=== PATIENT | female | born 1955 | race American Indian/Alaskan Native ===

== ENCOUNTER 2016-11-22 09:48 | Emergency (ER) | payer MEDICARE ==
[2016-11-22 11:24] LABS: INR 0.98 (0.87-1.13); Partial Thromboplastin Time 26.1 Sec. (24.2-36.6)
[2016-11-22 11:25] LABS: BUN/Creatinine Ratio 18.57; Blood Urea Nitrogen 26 mg/dL (7-17); Carbon Dioxide 25 mmol/L (22-30); Glucose 116 mg/dL (65-100); Hematocrit 25.5 % (30.3-42.9); Hemoglobin 7.3 gm/dl (10.1-14.3); Mean Corpuscular HGB Conc 29 % (30-34); Platelet Count 432 K/mm3 (140-440); Red Blood Count 3.97 M/mm3 (3.65-5.03); Red Cell Distribution Width 19.9 % (13.2-15.2)
[2016-11-22 11:26] LABS: Alanine Aminotransferase 12 units/L (7-56); Albumin 3.7 g/dL (3.9-5); Albumin/Globulin Ratio 1.1 %; Alkaline Phosphatase 96 units/L (35-129); Anion Gap 16 mmol/L; Bilirubin,Total < 0.20 mg/dL (0.1-1.2); Chloride 103.4 mmol/L (98-107); Mean Corpuscular Hemoglobin 18 pg (28-32); Mean Corpuscular Volume 64 fl (79-97); Potassium 4.1 mmol/L (3.6-5.0); Sodium 140 mmol/L (137-145); Total Protein 7.2 g/dL (6.3-8.2)
[2016-11-22 12:09] LABS: Anisocytosis 1+; Blastocytes % (Manual) 0 %; Elliptocytes Rare; Hypochromasia 2+; Microcytosis 1+; Ovalocytes Rare; Stomatocytes Rare
[2016-11-22 12:10] LABS: Poikilocytosis 1+; Schistocytes Rare
[2016-11-22 12:11] LABS: Diff Status Complete; Platelet Estimate Consistent w Auto; Target Cells Rare; Tear Drop Cells Rare
--- NOTE | 2016-11-22 15:41 | Emergency Department Report ---
ED Recheck HPI - General Chief Complaint: Recheck/Abnormal Lab/Rx Stated Complaint: BLOOD TRANSFUSION/SENT BY DR ALL Time Seen by Provider: 11/22/16 15:24 Source: patient Mode of arrival: Ambulatory Limitations: No Limitations - History of Present Illness Initial Comments: 60-year-old female past medical history CK D, anemia, diabetes, hypertension sent by primary care doctor for check of H&H. Patient states that she was called by her PMD and advised to come to the ED to have her CBC checked again. Patient states that for 3 weeks she has experienced some occasional shortness of breath with exertion and general fatigue. Patient denies any chest pain denies any shortness of breath at rest denies any palpitations denies any bleeding from the vaginal or anal orifice denies any bright red blood per toilet paper or in the bowl. He denies any hematuria. Denies any active bleeding to her knowledge. States she had blood work drawn approximately one month ago at PMDs office and was informed this week that her blood count was low. Patient is not in any respiratory distress at this time during interview. MD Complaint: abnormal lab Onset/Timin -: week(s) Returns Today for: CBOAL - Related Data Home Medications Medication Instructions Recorded Confirmed Last Taken Aspirin [Aspirin TAB] 325 mg PO QDAY 10/23/14 10/23/14 1 Day Ago Clopidogrel [Plavix] 75 mg PO QDAY 10/23/14 10/23/14 1 Day Ago Enalapril Maleate [Vasotec] 20 mg PO BID 10/23/14 10/23/14 1 Day Ago Metoprolol Xl [Toprol Xl] 25 mg PO QDAY 10/23/14 10/23/14 1 Day Ago Simvastatin 20 mg PO QHS 10/23/14 10/23/14 1 Day Ago amLODIPine [Norvasc] 10 mg PO DAILY 10/23/14 10/23/14 1 Day Ago Previous Rx's Medication Instructions Recorded Last Taken Type Insulin Glargine [Lantus] 5 unit SUB-Q QHS #1 vial 10/26/14 Unknown Rx Insulin NPH/Regular [Novolin 70/30] 20 unit SQ BIDDIAB #1 vial 10/26/14 Unknown Rx Syring W-Ndl,Disp,Insul,0.5 ml 1 each MC BID #1 box 10/26/14 Unknown Rx [Advocate Syringes] Ferrous Sulfate [Feosol 325 MG tab] 325 mg PO QDAY #30 tablet 11/22/16 Unknown Rx Allergies Allergy/AdvReac Type Severity Reaction Status Date / Time No Known Allergies Allergy Verified 11/22/16 10:28 ED Review of Systems ROS: Stated complaint: BLOOD TRANSFUSION/SENT BY DR LAL Other details as noted in HPI Constitutional: denies: chills, fever Eyes: denies: eye pain, eye discharge, vision change ENT: denies: ear pain, throat pain Respiratory: denies: cough, shortness of breath, wheezing Cardiovascular: denies: chest pain, palpitations Endocrine: no symptoms reported Gastrointestinal: denies: abdominal pain, nausea, diarrhea Genitourinary: denies: urgency, dysuria, discharge Musculoskeletal: denies: back pain, joint swelling, arthralgia Skin: denies: rash, lesions Neurological: denies: headache, weakness, paresthesias Psychiatric: denies: anxiety, depression Hematological/Lymphatic: denies: easy bleeding, easy bruising ED Past Medical Hx - Past Medical History Hx Hypertension: Yes Hx Heart Attack/AMI: Yes Hx Congestive Heart Failure: No Hx Diabetes: Yes (Pt has self administered Insulin pump.) Hx Asthma: No Hx COPD: No Hx HIV: No Additional medical history: High cholesterol - Surgical History Hx Coronary Stent: Yes (2009 or 2010) Additional Surgical History: Hysterectomy - Social History Smoking Status: Former Smoker Substance Use Type: None - Medications Home Medications: Home Medications Medication Instructions Recorded Confirmed Last Taken Type Aspirin [Aspirin TAB] 325 mg PO QDAY 10/23/14 10/23/14 1 Day Ago History Clopidogrel [Plavix] 75 mg PO QDAY 10/23/14 10/23/14 1 Day Ago History Enalapril Maleate [Vasotec] 20 mg PO BID 10/23/14 10/23/14 1 Day Ago History Metoprolol Xl [Toprol Xl] 25 mg PO QDAY 10/23/14 10/23/14 1 Day Ago History Simvastatin 20 mg PO QHS 10/23/14 10/23/14 1 Day Ago History amLODIPine [Norvasc] 10 mg PO DAILY 10/23/14 10/23/14 1 Day Ago History Insulin Glargine [Lantus] 5 unit SUB-Q QHS #1 vial 10/26/14 Unknown Rx Insulin NPH/Regular [Novolin 70/30] 20 unit SQ BIDDIAB #1 vial 10/26/14 Unknown Rx Syring W-Ndl,Disp,Insul,0.5 ml 1 each MC BID #1 box 10/26/14 Unknown Rx [Advocate Syringes] Ferrous Sulfate [Feosol 325 MG tab] 325 mg PO QDAY #30 tablet 11/22/16 Unknown Rx ED Physical Exam - General Limitations: No Limitations General appearance: alert, in no apparent distress - Head Head exam: Present: atraumatic, normocephalic - Eye Eye exam: Present: normal appearance, PERRL, EOMI - ENT ENT exam: Present: mucous membranes moist - Neck Neck exam: Present: normal inspection, full ROM - Respiratory Respiratory exam: Present: normal lung sounds bilaterally. Absent: respiratory distress - Cardiovascular Cardiovascular Exam: Present: regular rate, normal rhythm. Absent: systolic murmur, diastolic murmur, rubs, gallop - GI/Abdominal GI/Abdominal exam: Present: soft, normal bowel sounds - Rectal Rectal exam: Present: normal inspection, heme (-) stool (no blood on digital rectal exam on guaiac card or on gross digital exam.) - Extremities Exam Extremities exam: Present: normal inspection, full ROM - Back Exam Back exam: Present: normal inspection - Neurological Exam Neurological exam: Present: alert, oriented X3, CN II-XII intact, normal gait - Psychiatric Psychiatric exam: Present: normal affect, normal mood - Skin Skin exam: Present: warm, dry, intact, normal color. Absent: rash ED Course Vital Signs 11/22/16 11/22/16 11/22/16 10:21 16:02 16:30 Temperature 98.4 F Pulse Rate 66 73 Respiratory 17 21 Rate Blood Pressure 144/59 162/60 O2 Sat by Pulse 100 100 98 Oximetry 11/22/16 11/22/16 16:38 17:00 Temperature Pulse Rate Respiratory 17 Rate Blood Pressure 162/60 O2 Sat by Pulse 100 99 Oximetry ED Recheck MDM - Medical Decision Making a/p: anemia, need for CBC check 1- case discussed with Dr. King before discharge 2- patient's hemoglobin and hematocrit is 7.3/25 with no active hemorrhage and minimal symptoms no indication for transfusion at this time. Stool guaiac negative. EKG unremarkable, troponin negative chest x-ray unremarkable 3-I informed patient of her creatinine of 1.4 she states that she was advised of this and she is aware she has chronic kidney disease. I advised her to remain well-hydrated 4-I contacted the offices of Dr. Ravin Lal and discussed case with nurse practitioner Nacho. As per COMPANY DOCTOR Nacho patient's hemoglobin and hematocrit was 7.221 one month ago and creatinine was 1.3. Today's findings are consistent with previous lab work. As per nurse practitioner Nacho patient can follow up in clinic on Friday. Patient to do so to have her BMP as well as CBC rechecked. I empirically started the patient on ferrous sulfate supplementation Critical care attestation.: If time is entered above; I have spent that time in minutes in the direct care of this critically ill patient, excluding procedure time. ED Disposition Clinical Impression: Low hemoglobin Anemia Qualifiers: Anemia type: unspecified type Qualified Code(s): D64.9 - Anemia, unspecified Disposition: TO HOME OR SELFCARE Is pt being admited?: No Does the pt Need Aspirin: No Condition: Stable Instructions: Chronic Kidney Disease (ED), Iron Rich Diet (ED), Iron Deficiency Anemia (ED), Anemia (ED) Additional Instructions: Patient given test results and advised to follow up with primary care doctor as soon as possible, as per primary care office patient can follow up on Friday Prescriptions: Ferrous Sulfate [Feosol 325 MG tab] 325 mg PO QDAY #30 tablet Referrals: PRIMARY CAREMD [Primary Care Provider] - 3-5 Days RAVIN LAL MD [Staff Physician] - 3-5 Days Time of Disposition: 17:08
--- NOTE | 2016-11-22 15:47 | XRay Report ---
Chest 2 views: History: Weakness. Findings: Borderline cardiomegaly. No consolidation, pneumothorax or pleural effusion. Impression: No acute cardiopulmonary findings.
[2016-11-22 17:34] VITALS: BP 162/60
== END 2016-11-22 17:29 | disposition home or self-care (01) ==
LOC: ED 09:48
DX: D64.9 Anemia, unspecified (principal); I10 Essential (primary) hypertension; I25.2 Old myocardial infarction; E11.9 Type 2 diabetes mellitus without complications; E78.00 Pure hypercholesterolemia, unspecified; Z87.891 Personal history of nicotine dependence; Z79.82 Long term (current) use of aspirin; Z79.4 Long term (current) use of insulin
CPT/HCPCS: 36415; 71020; 80053; 82270; 82962; 84484; 85007; 85025; 85610; 85730; 86850; 86900; 86901; 93005; 93010; 99284

== ENCOUNTER 2016-12-18 07:36 | Outpatient (CLI) | payer MEDICARE ==
--- NOTE | 2016-12-18 09:06 | Mammography Report ---
BILATERAL MAMMOGRAM: FINDINGS: The breast tissue is heterogeneously dense, which could obscure detection of small masses (approximately 50%-75% glandular). No suspicious mass, distortion, suspicious calcification, or skin change is seen. No interval change compared to prior study in December 2015. CAD was utilized. IMPRESSION: Negative mammogram. There is no mammographic evidence of malignancy. RECOMMENDATION: Follow-up per ACS guidelines. BI-RADS CATEGORY: 1 = Negative ACR BI-RADS MAMMOGRAPHIC CODES: 0 = Needs additional imaging evaluation; 1 = Negative; 2 = Benign; 3 = Probably benign; 4 = Suspicious; 5 = Malignant; 6 = Known biopsy-proven malignancy COMMENT: 1. Dense breast tissue, i.e., adenosis, fibrocystic changes, etc., may obscure an underlying neoplasm. 2. Approximately 10% of cancers are not detected with mammography. 3. A negative mammography report should not delay biopsy if a clinically suspicious mass is present. COMMENT: Patient follow-up letters are generated in [employer].
== END 2016-12-18 07:37 | disposition home or self-care (01) ==
LOC: MAMMO 07:36
PROVIDERS: ATTEND Obstetrics & Gynecology Gynecology
DX: Z12.31 Encounter for screening mammogram for malignant neoplasm of breast (principal); I11.0 Hypertensive heart disease with heart failure; I50.9 Heart failure, unspecified; E13.10 Other specified diabetes mellitus with ketoacidosis without coma; E78.00 Pure hypercholesterolemia, unspecified; Z87.891 Personal history of nicotine dependence
CPT/HCPCS: 77067; G0202

== ENCOUNTER 2017-05-22 12:35 | Emergency (ER) | payer MEDICARE ==
[2017-05-22] MEDS ORDERED: ZOFRAN ONE ×2 (13:05)
[2017-05-22] MEDS ORDERED: ZOFRAN IV ONE (13:12)
[2017-05-22 13:34] LABS: Bilirubin,Urine NEG (Negative); Blood,Urine NEG (Negative); Color,Urine Straw (Yellow); Mucus,Urine FEW /HPF; Nitrite,Urine NEG (Negative); Urobilinogen,Urine < 2.0 mg/dL (<2.0); WBC,Urine < 1.0 /HPF (0.0-6.0)
[2017-05-22] MEDS ORDERED: NACL 0.9% 1000 ML 1,000 ML IV ONE ×3 (13:45→15:27)
[2017-05-22 14:39] LABS: Calcium 9.5 mg/dL (8.4-10.2)
[2017-05-22 14:41] LABS: Hemoglobin 12.8 gm/dl (10.1-14.3); Red Blood Count 4.72 M/mm3 (3.65-5.03)
[2017-05-22 14:42] LABS: Hematocrit 42.4 % (30.3-42.9); Mean Corpuscular HGB Conc 30 % (30-34); Mean Corpuscular Hemoglobin 27 pg (28-32); Mean Corpuscular Volume 90 fl (79-97); Mean Platelet Volume 10.6 fl (6-12); Platelet Count 363 K/mm3 (140-440); Red Cell Distribution Width 19.1 % (13.2-15.2)
--- NOTE | 2017-05-22 15:04 | Emergency Department Report ---
- General Chief complaint: Hyperglycemia Stated complaint: HYPERGLYCEMIA/HYPERTENSION Time Seen by Provider: 05/22/17 13:23 Source: patient Mode of arrival: Ambulatory Limitations: No Limitations - History of Present Illness Initial comments: Patient is a 61-year-old female who has a past medical history of insulin-dependent diabetes with insulin pump who is presenting with hyperglycemia. Patient this morning very early started having some nausea with 3 episodes of vomiting. Patient saw her primary physician who checked her sugar and it read high. Patient was sent in for evaluation. Patient states that her symptoms appears to be working normally she has had no evidence of any infections lately there is no dysuria, cough cold congestion and sore throat and fever. Patient states that beyond the nausea vomiting there is no abdominal pain. MD Complaint: generalized weakness - Related Data Home Medications Medication Instructions Recorded Confirmed Last Taken Aspirin [Aspirin TAB] 325 mg PO QDAY 10/23/14 10/23/14 1 Day Ago ~10/22/14 Clopidogrel [Plavix] 75 mg PO QDAY 10/23/14 10/23/14 1 Day Ago ~10/22/14 Enalapril Maleate [Vasotec] 20 mg PO BID 10/23/14 10/23/14 1 Day Ago ~10/22/14 Metoprolol Xl [Toprol Xl] 25 mg PO QDAY 10/23/14 10/23/14 1 Day Ago ~10/22/14 Simvastatin 20 mg PO QHS 10/23/14 10/23/14 1 Day Ago ~10/22/14 amLODIPine [Norvasc] 10 mg PO DAILY 10/23/14 10/23/14 1 Day Ago ~10/22/14 Previous Rx's Medication Instructions Recorded Last Taken Type Insulin Glargine [Lantus] 5 unit SUB-Q QHS #1 vial 10/26/14 Unknown Rx Insulin NPH/Regular [Novolin 70/30] 20 unit SQ BIDDIAB #1 vial 10/26/14 Unknown Rx Syringe-Needle,Insulin,0.5 ml 1 each MC BID #1 box 10/26/14 Unknown Rx [Advocate Syringes] Ferrous Sulfate [Feosol 325 MG tab] 325 mg PO QDAY #30 tablet 11/22/16 Unknown Rx Allergies Allergy/AdvReac Type Severity Reaction Status Date / Time No Known Allergies Allergy Verified 11/22/16 10:28 ED Review of Systems ROS: Stated complaint: HYPERGLYCEMIA/HYPERTENSION Other details as noted in HPI Comment: All other systems reviewed and negative Gastrointestinal: other (patient had a CT scan done last week with contrast to check for cancer. This was a routine checkup patient has a history of colon cancer in the past that has been removed) ED Past Medical Hx - Past Medical History Hx Hypertension: Yes Hx Heart Attack/AMI: Yes Hx Congestive Heart Failure: No Hx Diabetes: Yes (Pt has self administered Insulin pump.) Hx Asthma: No Hx COPD: No Hx HIV: No Additional medical history: High cholesterol - Surgical History Hx Coronary Stent: Yes (2009 or 2010) Additional Surgical History: Hysterectomy - Social History Smoking Status: Never Smoker Substance Use Type: None - Medications Home Medications: Home Medications Medication Instructions Recorded Confirmed Last Taken Type Aspirin [Aspirin TAB] 325 mg PO QDAY 10/23/14 10/23/14 1 Day Ago History ~10/22/14 Clopidogrel [Plavix] 75 mg PO QDAY 10/23/14 10/23/14 1 Day Ago History ~10/22/14 Enalapril Maleate [Vasotec] 20 mg PO BID 10/23/14 10/23/14 1 Day Ago History ~10/22/14 Metoprolol Xl [Toprol Xl] 25 mg PO QDAY 10/23/14 10/23/14 1 Day Ago History ~10/22/14 Simvastatin 20 mg PO QHS 10/23/14 10/23/14 1 Day Ago History ~10/22/14 amLODIPine [Norvasc] 10 mg PO DAILY 10/23/14 10/23/14 1 Day Ago History ~10/22/14 Insulin Glargine [Lantus] 5 unit SUB-Q QHS #1 vial 10/26/14 Unknown Rx Insulin NPH/Regular [Novolin 70/30] 20 unit SQ BIDDIAB #1 vial 10/26/14 Unknown Rx Syringe-Needle,Insulin,0.5 ml 1 each MC BID #1 box 10/26/14 Unknown Rx [Advocate Syringes] Ferrous Sulfate [Feosol 325 MG tab] 325 mg PO QDAY #30 tablet 11/22/16 Unknown Rx ED Physical Exam - General Limitations: No Limitations General appearance: alert, in no apparent distress - Head Head exam: Present: atraumatic, normocephalic - Eye Eye exam: Present: normal appearance - ENT ENT exam: Present: mucous membranes moist - Neck Neck exam: Present: normal inspection - Respiratory Respiratory exam: Present: normal lung sounds bilaterally. Absent: respiratory distress - Cardiovascular Cardiovascular Exam: Present: regular rate, normal rhythm. Absent: systolic murmur, diastolic murmur, rubs, gallop - GI/Abdominal GI/Abdominal exam: Present: soft, normal bowel sounds - Extremities Exam Extremities exam: Present: normal inspection - Back Exam Back exam: Present: normal inspection - Neurological Exam Neurological exam: Present: alert, oriented X3 - Psychiatric Psychiatric exam: Present: normal affect, normal mood - Skin Skin exam: Present: warm, dry, intact, normal color. Absent: rash ED Course Vital Signs 05/22/17 05/22/17 12:57 13:35 Pulse Rate 90 Respiratory 16 22 Rate Blood Pressure 187/64 O2 Sat by Pulse 100 94 Oximetry ED Medical Decision Making - Lab Data Result diagrams: 05/22/17 13:45 05/22/17 13:45 Lab Results 05/22/17 05/22/17 05/22/17 Range/Units 12:58 13:13 13:45 WBC 8.3 (4.5-11.0) K/mm3 RBC 4.72 (3.65-5.03) M/mm3 Hgb 12.8 (10.1-14.3) gm/dl Hct 42.4 (30.3-42.9) % MCV 90 (79-97) fl MCH 27 L (28-32) pg MCHC 30 (30-34) % RDW 19.1 H (13.2-15.2) % Plt Count 363 (140-440) K/mm3 Seg Neutrophils % Strategy Analyst Sodium (137-145) mmol/L Potassium (3.6-5.0) mmol/L Chloride (98-107) mmol/L Carbon Dioxide (22-30) mmol/L Anion Gap mmol/L BUN (7-17) mg/dL Creatinine (0.7-1.2) mg/dL Estimated GFR ml/min BUN/Creatinine Ratio % Glucose (65-100) mg/dL POC Glucose > 500 H (70-105) Calcium (8.4-10.2) mg/dL Urine Color Straw (Yellow) Urine Turbidity Clear (Clear) Urine pH 7.0 (5.0-7.0) Ur Specific [place] 1.017 (1.003-1.030) Urine Protein 100 mg/dl (Negative) mg/dL Urine Glucose (UA) >=500 (Negative) mg/dL Urine Ketones Tr (Negative) mg/dL Urine Blood Neg (Negative) Urine Nitrite Neg (Negative) Urine Bilirubin Neg (Negative) Urine Urobilinogen < 2.0 (<2.0) mg/dL Ur Leukocyte Esterase Neg (Negative) Urine WBC (Auto) < 1.0 (0.0-6.0) /HPF Urine RBC (Auto) 1.0 (0.0-6.0) /HPF Urine Mucus Few /HPF 05/22/17 05/22/17 Range/Units 13:45 14:48 WBC (4.5-11.0) K/mm3 RBC (3.65-5.03) M/mm3 Hgb (10.1-14.3) gm/dl Hct (30.3-42.9) % MCV (79-97) fl MCH (28-32) pg MCHC (30-34) % RDW (13.2-15.2) % Plt Count (140-440) K/mm3 Seg Neutrophils % Sodium 128 L (137-145) mmol/L Potassium 6.0 H (3.6-5.0) mmol/L Chloride 84.2 L (98-107) mmol/L Carbon Dioxide 17 L (22-30) mmol/L Anion Gap 33 mmol/L BUN 57 H (7-17) mg/dL Creatinine 1.9 H (0.7-1.2) mg/dL Estimated GFR 32 ml/min BUN/Creatinine Ratio 30 % Glucose 1026 H* (65-100) mg/dL POC Glucose > 500 H (70-105) Calcium 9.5 (8.4-10.2) mg/dL Urine Color (Yellow) Urine Turbidity (Clear) Urine pH (5.0-7.0) Ur Specific [place] (1.003-1.030) Urine Protein (Negative) mg/dL Urine Glucose (UA) (Negative) mg/dL Urine Ketones (Negative) mg/dL Urine Blood (Negative) Urine Nitrite (Negative) Urine Bilirubin (Negative) Urine Urobilinogen (<2.0) mg/dL Ur Leukocyte Esterase (Negative) Urine WBC (Auto) (0.0-6.0) /HPF Urine RBC (Auto) (0.0-6.0) /HPF Urine Mucus /HPF - Medical Decision Making Patient is a 61-year-old Female presenting with a severely elevated glucose. Patient also shows evidence of renal insufficiency. Patient was started on fluid resuscitation as been given insulin. Patient is a hyperosmolar state. Patient be admitted at this time to Dr. Mooney at the hospitalist service. Critical Care Time: Yes Critical care time in (mins) excluding proc time.: 30 Critical care attestation.: If time is entered above; I have spent that time in minutes in the direct care of this critically ill patient, excluding procedure time. ED Disposition Clinical Impression: Type 2 diabetes mellitus with hyperosmolar nonketotic hyperglycemia, Renal insufficiency, Dehydration Disposition: OP ADMIT IP TO THIS HOSP Is pt being admited?: Yes Does the pt Need Aspirin: No Condition: Stable
[2017-05-22 15:15] LABS: Basophils % (Manual) 0 % (0.0-1.8); Eosinophils % (Manual) 0 % (0.0-4.3); Total Cells Counted 100
[2017-05-22 15:17] LABS: RBC Morphology Normal
[2017-05-22] MEDS ORDERED: D50W (25GM) Syringe IV PRN (15:27)
[2017-05-22] MEDS ORDERED: ALUM-MAG HYDROX-SIMETH 200-200-20MG/5ML PO PRN (15:29)
[2017-05-22] MEDS ORDERED: MILK OF MAGNESIA PO PRN (15:29)
[2017-05-22] MEDS ORDERED: PROVENTIL IH PRN (15:29)
[2017-05-22] MEDS ORDERED: DULCOLAX PR PRN (15:29)
--- NOTE | 2017-05-22 15:31 | History and Physical Report ---
History of Present Illness Chief complaint: My sugar is high History of present illness: 61 YO Female with HTN, [place], CAD S/P Stent Placement, DM with Insulin pump in place, HLD presents to ED for evaluation. Pt states that she has experienced high blood glucose, and was told by her PCP to seek further medical care. Patient states that she has experienced nausea and 3 episodes of vomiting today , as well as polyuria, polydipsia. Patient was seen by her primary physician who checked her blood glucose level and found that it was elevated. Patient was sent to [facility] for evaluation. Pt seen and evaluated in ED and found to have DKA, complicated by metabolic acidosis and Acute renal failure. Pt denies fever, chills, CP, Palpitations, Syncope, BRBPR, unintentional weight loss, night sweats, skin rash, trauma, or nonfunctioning insulin pump. Pt admitted to ICU and initiated on DKA protocol. Past History Past Medical History: acute [place], CAD, diabetes, hypertension, hyperlipidemia Past Surgical History: hysterectomy, Other (Stent placement) Social history: single. denies: smoking, alcohol abuse, prescription drug abuse Family history: diabetes, hypertension Medications and Allergies Allergies Allergy/AdvReac Type Severity Reaction Status Date / Time No Known Allergies Allergy Verified 11/22/16 10:28 Home Medications Medication Instructions Recorded Confirmed Last Taken Type Aspirin [Aspirin TAB] 325 mg PO QDAY 10/23/14 10/23/14 1 Day Ago History ~10/22/14 Clopidogrel [Plavix] 75 mg PO QDAY 10/23/14 10/23/14 1 Day Ago History ~10/22/14 Enalapril Maleate [Vasotec] 20 mg PO BID 10/23/14 10/23/14 1 Day Ago History ~10/22/14 Metoprolol Xl [Toprol Xl] 25 mg PO QDAY 10/23/14 10/23/14 1 Day Ago History ~10/22/14 Simvastatin 20 mg PO QHS 10/23/14 10/23/14 1 Day Ago History ~10/22/14 amLODIPine [Norvasc] 10 mg PO DAILY 10/23/14 10/23/14 1 Day Ago History ~10/22/14 Insulin Glargine [Lantus] 5 unit SUB-Q QHS #1 vial 10/26/14 Unknown Rx Insulin NPH/Regular [Novolin 70/30] 20 unit SQ BIDDIAB #1 vial 10/26/14 Unknown Rx Syringe-Needle,Insulin,0.5 ml 1 each MC BID #1 box 10/26/14 Unknown Rx [[facility] Syringes] Ferrous Sulfate [Feosol 325 MG tab] 325 mg PO QDAY #30 tablet 11/22/16 Unknown Rx Active Meds: Active Medications Al Hydrox/Mg Hydrox/Simethicone (Alum-Mag Hydrox-Simeth 126-774-02xv/5ml) 30 ml PO Q4H PRN PRN Reason: Indigestion Albuterol (Proventil) 2.5 mg IH Q3HRT PRN PRN Reason: Shortness Of Breath Bisacodyl (Dulcolax) 10 mg [place] QDAY PRN PRN Reason: constipation unrelieved by MOM Dextrose (D50w (25gm) Syringe) 0 ml IV PRN PRN PRN Reason: Hypoglycemia Potassium Chloride/Dextrose/Sod Cl (D5w/0.45% Nacl/Kcl 20 Meq) 20 meq in 1,000 mls @ 125 mls/hr IV DIRECT VENKAT Sodium Chloride (Nacl 0.9% 1000 Ml) 1,000 mls @ 999 mls/hr IV BOLUS ONE Stop: 05/22/17 16:27 Insulin Human Regular 100 (units/ Sodium Chloride) 100 mls @ 1 mls/hr IV TITR VENKAT; 1 UNITS/HR PRN Reason: Protocol Magnesium Hydroxide (Milk Of Magnesia) 30 ml PO Q4H PRN PRN Reason: Constipation Review of Systems Constitutional: no weight loss, no weight gain, no fever, no chills Ears, nose, mouth and throat: no ear pain, no ear discharge, no tinnitis, no decreased hearing, no nose pain, no nasal congestion Breasts: no change in shape, no swelling, no mass Cardiovascular: no chest pain, no orthopnea, no palpitations, no rapid/ irregular heart beat, no edema, no syncope Respiratory: no cough, no cough with sputum, no excessive sputum, no hemoptysis , no shortness of breath Gastrointestinal: nausea, vomiting Genitourinary Female: no pelvic pain, no flank pain, no menorrhagia, no dysuria , no urinary frequency, no urgency Rectal: no pain, no incontinence, no bleeding Musculoskeletal: no neck stiffness, no neck pain, no shooting arm pain, no arm numbness/tingling Integumentary: no rash, no pruritis, no redness, no sores, no wounds, no jaundice Neurological: no head injury, no transient paralysis, no paralysis, no weakness , no parathesias, no numbness, no tingling Psychiatric: no anxiety, no memory loss, no change in sleep habits, no sleep disturbances, no insomnia, no hypersomnia, no change in appetite, no change in libido Endocrine: polyphagia, polydipsia, polyuria, no cold intolerance, no heat intolerance Hematologic/Lymphatic: no easy bruising, no easy bleeding, no lymphadenopathy, no lymphedema Allergic/Immunologic: no urticaria, no allergic rhinitis, no wheezing, no persistent infections, no anaphylaxis, no angioedema Exam - Constitutional Vitals: Temp Pulse Resp BP Pulse Ox 90 22 187/64 94 05/22/17 12:57 05/22/17 13:35 05/22/17 12:57 05/22/17 13:35 General appearance: Present: mild distress - EENT Eyes: Present: PERRL ENT: hearing intact, clear oral mucosa - Neck Neck: Present: supple, normal ROM - Respiratory Respiratory effort: normal Respiratory: bilateral: CTA - Cardiovascular Heart Sounds: Present: S1 & S2. Absent: rub, click - Extremities Extremities: pulses symmetrical, No edema Peripheral Pulses: within normal limits - Abdominal General gastrointestinal: Present: soft, non-tender, non-distended, normal bowel sounds Female genitourinary: Present: normal - Integumentary Integumentary: Present: clear, warm, dry - Musculoskeletal Musculoskeletal: gait normal, strength equal bilaterally - Psychiatric Psychiatric: appropriate mood/affect, intact judgment & insight - Neurologic Neurologic: CNII-XII intact, moves all extremities Results - Labs CBC & Chem 7: 05/22/17 13:45 05/22/17 13:45 Labs: Abnormal lab results 05/22/17 05/22/17 05/22/17 Range/Units 12:58 13:45 13:45 MCH 27 L (28-32) pg RDW 19.1 H (13.2-15.2) % Seg Neuts % (Manual) 90.0 H (40.0-70.0) % Lymphocytes % (Manual) 6.0 L (13.4-35.0) % Lymphocytes # (Manual) 0.5 L (1.2-5.4) K/mm3 Sodium 128 L (137-145) mmol/L Potassium 6.0 H (3.6-5.0) mmol/L Chloride 84.2 L (98-107) mmol/L Carbon Dioxide 17 L (22-30) mmol/L BUN 57 H (7-17) mg/dL Creatinine 1.9 H (0.7-1.2) mg/dL Glucose 1026 H* (65-100) mg/dL POC Glucose > 500 H (70-105) 05/22/17 Range/Units 14:48 MCH (28-32) pg RDW (13.2-15.2) % Seg Neuts % (Manual) (40.0-70.0) % Lymphocytes % (Manual) (13.4-35.0) % Lymphocytes # (Manual) (1.2-5.4) K/mm3 Sodium (137-145) mmol/L Potassium (3.6-5.0) mmol/L Chloride (98-107) mmol/L Carbon Dioxide (22-30) mmol/L BUN (7-17) mg/dL Creatinine (0.7-1.2) mg/dL Glucose (65-100) mg/dL POC Glucose > 500 H (70-105) Assessment and Plan - Patient Problems (1) Diabetic ketoacidosis Current Visit: No Status: Acute Qualifiers: Diabetes mellitus type: type 1 Plan to address problem: DKA Protocol: IVF, Insulin drip, serial BMP, monitor UOP q shift, The high probability of a clinically significant, sudden or life threatening deterioration of the [Endocrine, renal, Neurologic] system(s) required my full and direct attention, intervention and personal management. The aggregate critical care time was [65] minutes. This time is in addition to time spent performing reported procedures but includes the following: [x] Data Review and interpretation [x] Patient assessment and monitoring of vital signs [x] Documentation [x] Medication orders and management (2) ARF (acute renal failure) Current Visit: Yes Status: Acute Qualifiers: Acute renal failure type: with acute tubular necrosis Qualified Code(s): N17.0 - Acute kidney failure with tubular necrosis Plan to address problem: IVF resuscitation, monitor uop q shift, urine electrolytes, repeat bmp to monitor serum creatnine. (3) Metabolic acidosis Current Visit: Yes Status: Acute Plan to address problem: IVF resuscitation, monitor uop q shift, repeat bmp, treat DKA (4) Hyponatremia syndrome Current Visit: Yes Status: Acute Plan to address problem: IVF resuscitation, repeat BMP, (5) DVT prophylaxis Current Visit: No Status: Acute
[2017-05-22] MEDS ORDERED: NovoLIN R 100 UNITS in NACL 0.9% 99 ML IV SCH (16:00)
[2017-05-22] MEDS ORDERED: D5W/0.45% NACL/KCL 20 MEQ 20 MEQ/1,000 ML BAG IV SCH (16:00)
[2017-05-22 19:55] LABS: Calcium 8.2 mg/dL (8.4-10.2)
[2017-05-22 21:36] LABS: Calcium 8.7 mg/dL (8.4-10.2)
[2017-05-23 00:01] LABS: Calcium 8.2 mg/dL (8.4-10.2)
[2017-05-23 08:46] LABS: Calcium 8.9 mg/dL (8.4-10.2)
--- NOTE | 2017-05-23 12:02 | Event Note ---
Date: 05/23/17 Patient left AMS,did not see the patient
--- NOTE | 2017-05-23 13:47 | Discharge Summary ---
Providers - Providers Date of Admission: 05/22/17 15:29 Date of discharge: 05/23/17 Attending physician: MICHAEL DAVIS Primary care physician: SAMI LAL Hospitalization Reason for admission: DKA Condition: Stable Hospital course: patient left AMA before my rounds/did not see the patient Disposition: DC-07 LEFT AGAINST MED ADVICE Time spent for discharge: 10 min Core Measure Documentation - Palliative Care Palliative Care/ Comfort Measures: Not Applicable - Core Measures Any of the following diagnoses?: none Exam - Physical Exam Narrative exam: Left AMA - Constitutional Vitals: Temp Pulse Resp BP Pulse Ox 98.7 F 85 17 141/48 99 05/23/17 00:58 05/23/17 00:58 05/23/17 00:58 05/23/17 00:58 05/23/17 00:58 Plan Additional Instructions: Left AMA Follow up with: SAMI LAL MD [Primary Care Provider] - 7 Days
--- NOTE | 2017-05-23 15:39 | XRay Report ---
CHEST 2 VIEWS INDICATION: Cough. COMPARISON: 11/22/2016 FINDINGS: PA and lateral chest radiographs demonstrate a new left subclavian Port-A-Cath tip about the cavoatrial junction. Stable, top normal heart size. Clear lungs. EKG leads. Intact bones. CONCLUSION: No acute chest process with interval left port placement, as described. Thank you for the opportunity to participate in this patient's care.
[2017-05-23 17:23] VITALS: BP 151/65
== END 2017-05-23 12:46 | disposition left against medical advice (07) ==
LOC: ED 12:35 → UNDOADMIN 15:29 → CC1 15:29 → ED 05-23 12:46
DX: E11.00 Type 2 diabetes mellitus with hyperosmolarity without nonketotic hyperglycemic-hyperosmolar coma (NKHHC) (principal); N28.9 Disorder of kidney and ureter, unspecified; E86.0 Dehydration; I10 Essential (primary) hypertension; E78.00 Pure hypercholesterolemia, unspecified; Z90.710 Acquired absence of both cervix and uterus; Z79.4 Long term (current) use of insulin
CPT/HCPCS: 36415; 71046; 80048; 81001; 82962; 83735; 84100; 85007; 85025; 96361; 96365; 96366; 96375; 99291; J2405; J7030; J1815